=== PATIENT | female | born 1995 | race African-American/Black ===

== ENCOUNTER 2020-01-06 13:56 | Emergency (ER) | payer MEDICAID, OTHER ==
[~2020-01-06] VITALS: Ht 160 cm; Wt 68.0 kg
--- NOTE | 2020-01-06 14:25 | NUR ---
ED Nurse Note: pt. walked in to er from home. per pt. she has wisdom tooth and has been having excruciating pain x 3 days now. has not seen a dentist because they wont take her insurance. ao4 nad vss
[2020-01-06 14:30] VITALS: BP 126/82
[2020-01-06] MEDS ORDERED: AMOXICILLIN500 MG ORAL (14:34)
[2020-01-06] MEDS ORDERED: ACETAMINOPHEN-1 EAC1 ORAL (14:34)
[2020-01-06] MEDS ORDERED: Acetaminophen 500mg (ES) tab ORAL ONE (14:45)
[2020-01-06 14:55] VITALS: BP 126/82
--- NOTE | 2020-01-06 14:55 | NUR ---
ER DISCHARGE NOTE: Patient is cleared to be discharged per ERMD, pt is aox4, on room air, with stable vital signs. pt was given dc and prescription instructions, pt was able to verbalize understanding, pt id band removed. pt is able to ambulate with steady gait. pt took all belongings.
--- NOTE | 2020-01-06 15:19 | Emergency Room Report ---
History of Present Illness General Chief Complaint: Toothache Source: Patient Present Illness HPI 24-year-old female presents ED complaining of tooth pain. She has had 3 wisdom teeth previously removed and the last one is now impacted and causing her pain. Started about 1 week ago. Getting worse. 10 out of 10, throbbing. Nonradiating. Denies fevers or chills. Denies neck pain or neck stiffness. States that she is visiting from [place] and dentist here were unable to take her insurance. No other aggravating relieving factors. Denies any other associated symptoms Allergies: Coded Allergies: No Known Allergies (Unverified , 01/06/20) Patient History Past Medical History: none Past Surgical History: other - wisdom tooth extraction Pertinent Family History: none Social History: Denies: smoking, alcohol use, drug use Last Menstrual Period: 2 months ago Now: No Immunizations: UTD Reviewed Nursing Documentation: PMH: Agreed; PSxH: Agreed Nursing Documentation-PMH Past Medical History: No Stated History Review of Systems All Other Systems: negative except mentioned in HPI Physical Exam Vital Signs Date Time Temp Pulse Resp B/P (MAP) Pulse Ox O2 Delivery O2 Flow Rate FiO2 01/06/20 14:25 98.2 89 17 126/82 (97) 99 Room Air Sp02 EP Interpretation: reviewed, normal General Appearance: no apparent distress, alert, GCS 15, non-toxic Head: normocephalic Eyes: bilateral eye normal inspection, bilateral eye PERRL ENT: hearing grossly normal, normal pharynx, no angioedema, normal voice, other - impacted wisdom tooth, R lower jaw. no erythema/induration Neck: full range of motion, supple, no meningismus, supple/symm/no masses Respiratory: normal inspection Cardiovascular #1: normal inspection Gastrointestinal: normal inspection Rectal: deferred Genitourinary: no CVA tenderness Musculoskeletal: normal inspection Neurologic: alert, motor strength/tone normal, oriented x3, sensory intact, responsive, speech normal Psychiatric: normal inspection Skin: no rash Lymphatic: normal inspection Medical Decision Making Diagnostic Impression: Primary Impression: Toothache ER Course 24-year-old female presents ED complaining of tooth pain. Cracked tooth, dental abscess, cavity Patient placed on stretcher. After initial history, physical exam reveals a young female in mild distress. The right lower wisdom tooth appears to be impacted and with surrounding erythema. No discharge or fluctuance remainder of exam unremarkable. I discussed findings with patient. Given Tylenol and amoxicillin here. Will discharge with antibiotics. Will provide dental referrals. Safe for discharge close outpatient follow-up Diagnosis- toothache Stable and discharged to home prescription for Tylenol #3 and amoxicillin. Instructed to see dentist as a walk-in this week. Return to ED if symptoms recur or worse Last Vital Signs Date Time Temp Pulse Resp B/P (MAP) Pulse Ox O2 Delivery O2 Flow Rate FiO2 01/06/20 14:25 98.2 89 17 126/82 (97) 99 Room Air Status: improved Disposition: HOME, SELF-CARE Condition: Stable Scripts Amoxicillin* (AMOXIL*) 500 Mg Capsule 500 MG ORAL THREE TIMES A DAY, #21 CAP Prov: Hussain Ibarra MD 01/06/20 Acetaminophen With Codeine (T#3) (TYLENOL #3 TAB*) Y Tab 1 TAB ORAL Q8H PRN for For Pain, #12 TAB Prov: Hussain Ibarra MD 01/06/20 Referrals: [facility], [facility](age 2-12) - Orthodontic Clinic - Hours: Sun,Sun,, 8:15am and 1pm (new patient screening), Tu. 1pm. Emergency clinic Sunday - Sunday 8:30am and 1pm, Tues. 1pm. *Call to check if clinic is open; No appointment necessary for the first visit ( new patient screening), Arrive 15-30 minutes early as it is first come, first serve. [facility] INFO: New Patient Screening: Sun- 8am-1pm Sun- 9am -5pm and Sun 2pm-5pm Patient Instructions: Pericoronitis Hussain Ibarra MD Jan 06, 2020 15:19
== END 2020-01-06 14:55 | disposition home or self-care (01) ==
LOC: EMR 14:40
DX: K08.89 Other specified disorders of teeth and supporting structures (principal)
CPT/HCPCS: 99282